=== PATIENT | male | born 1950 | race American Indian/Alaskan Native ===

== ENCOUNTER 2020-09-03 19:17 | Emergency (ER) | payer OTHER ==
--- NOTE | 2020-09-03 20:03 | Emergency Department Report ---
Blank Doc - Documentation Documentation: I received EKG from EMS and shared with on-call STEMI doctor at 7:[address] Lozada agrees that EKG findings do not represent ST elevation RI and no emergent indication needed at this time. Arrival EKG unchanged from EKG in route and continues to show a right bundle branch block. chest pain protocol initiated upon patient's arrival
--- NOTE | 2020-09-03 21:01 | Emergency Department Report ---
ED General Adult HPI - General Chief complaint: Medical Clearance Stated complaint: I am fine, there is nothing wrong with me Time Seen by Provider: 09/03/20 20:07 Source: patient, family, EMS ( EMS documentation not available at time of chart dictation ), RN notes reviewed Mode of arrival: Ambulatory Limitations: No Limitations - History of Present Illness Initial comments: The patient was evaluated in the emergency department for symptoms described in the history of present illness. He/she was evaluated in the context of the global COVID-19 pandemic, which necessitated consideration that the patient might be at risk for infection with the virus that causes COVID-19. Institutional protocols and algorithms that pertain to the evaluation of pat ients at risk for COVID-19 are in a state of rapid change based on information released by regulatory bodies including the CDC and federal and state organizations. These policies and algorithms were followed during the patient's care in the emergency department. Please note that these policies, procedures and recommendations changed on a rapid basis. During the history and physical examination, I had a complete personal protective equipment. The patient is a 70-year-old gentleman. He is brought to the hospital by emergency medical services. The patient himself says he has no complaints. He states "I feel fine, I just want to go home." The patient denies all physical pain. Contacted the patient's son with the patient's permission. Patient's son states that at around 5:00 this afternoon, patient was seen slumping over, while standing, and was "staring off into space." He also endorsed that the patient "did not seem to be himself", and was "sweating." Thus, emergency medical s ervices were activated. The patient recalls the event. The patient states that he was awake, and leaning forward, and he does not recall having physical pain. The patient states he typically follows at the [facility]. The patient states he feels like he is back to his baseline, and that he has no complaints right now, or today. -: Sudden Consistency: now resolved Improves with: none Worsens with: none Associated Symptoms: denies other symptoms ED Review of Systems ROS: Stated complaint: CHEST PAIN Other details as noted in HPI Comment: All other systems reviewed and negative ED Past Medical Hx - Past Medical History Previous Medical History?: Yes Hx Hypertension: Yes Hx Diabetes: Yes - Surgical History Past Surgical History?: No ED Physical Exam - General Limitations: No Limitations General appearance: alert, in no apparent distress - Head Head exam: Present: atraumatic, normocephalic - Eye Eye exam: Present: normal appearance, PERRL, EOMI, other (Visual acuity intact to finger counting, color perception, reading at a close distance). Absent: nystagmus - ENT ENT exam: Present: normal exam, normal orophraynx, mucous membranes moist, normal external ear exam - Neck Neck exam: Present: normal inspection, full ROM. Absent: tenderness, meningismus - Respiratory Respiratory exam: Present: normal lung sounds bilaterally. Absent: respiratory distress, wheezes, rales, rhonchi, stridor, decreased breath sounds - Cardiovascular Cardiovascular Exam: Present: regular rate, normal rhythm, normal heart sounds. Absent: bradycardia, tachycardia, irregular rhythm, systolic murmur, diastolic murmur, rubs, gallop - GI/Abdominal GI/Abdominal exam: Present: soft, normal bowel sounds. Absent: distended, tenderness, guarding, rebound, rigid, pulsatile mass - Rectal Rectal exam: Present: deferred - Extremities Exam Extremities exam: Present: normal inspection, full ROM, other (2+ pulses noted in the bilateral upper and lower extremities. There is no palpable cord. negative Homans sign. Muscular compartments are soft. The pelvis is stable.). Absent: pedal edema, calf tenderness - Back Exam Back exam: Present: normal inspection, full ROM. Absent: tenderness, CVA tenderness (R), CVA tenderness (L), paraspinal tenderness, vertebral tenderness - Neurological Exam Neurological exam: Present: alert (Able to add 4+4, subtract 100-7.), oriented X3, normal gait, other (There is no facial droop. The tongue is midline. Extraocular movements are intact bilaterally. There is 5 out of 5 strength in bilateral upper and lower extremities. Sensation is intact to light touch bilateral upper and lower extremities. There is no past-pointing. There is no pronator drift.). Absent: motor sensory deficit - Psychiatric Psychiatric exam: Present: normal affect, normal mood - Skin Skin exam: Present: warm, dry, intact, normal color. Absent: rash ED Course Vital Signs 09/03/20 09/03/20 09/03/20 20:27 21:00 21:04 Temperature 98.5 F 98.5 F Pulse Rate 85 85 84 Respiratory 14 14 15 Rate Blood Pressure 113/63 Blood Pressure 113/63 126/66 [Right] O2 Sat by Pulse 97 97 98 Oximetry 09/03/20 21:12 Temperature Pulse Rate Respiratory 15 Rate Blood Pressure Blood Pressure [Right] O2 Sat by Pulse 97 Oximetry ED Medical Decision Making - Lab Data Vital Signs 09/03/20 09/03/20 09/03/20 20:27 21:00 21:04 Temperature 98.5 F 98.5 F Pulse Rate 85 85 84 Respiratory 14 14 15 Rate Blood Pressure 113/63 Blood Pressure 113/63 126/66 [Right] O2 Sat by Pulse 97 97 98 Oximetry 09/03/20 21:12 Temperature Pulse Rate Respiratory 15 Rate Blood Pressure Blood Pressure [Right] O2 Sat by Pulse 97 Oximetry - EKG Data -: EKG Interpreted by Nd EKG shows normal: sinus rhythm - EKG Data When compared to previous EKG there are: previous EKG unavailable 09/03/20 21:34 The EKG today is unchanged from prehospital EKG. This shows a sinus rhythm, 76 bpm. There is a left axis deviation, with a left anterior fascicular block. There is a right bundle branch block noted. There is left ventricular hypertrophy. The patient denies chest pain. This EKG is not a STEMI. The EKG appears to be unchanged from prehospital EKG. - Medical Decision Making Differential diagnosis, including but not limited to: Orthostasis, vagal event, structural cardiac disease, electrolyte derangement, thyroid derangement, pneumonia, urinary tract infection, TIA Assessment and plan: 70-year-old gentleman, who is clinically sober, with a GCS of 15, alert and oriented, exhibits decision-making capacity, and is free from distracting injury. The patient is also able to carry on a lucid and rational thought process. Emergency medical services were contacted by family because the patient had a change temporarily in his baseline mental status. However, this is resolved. We strongly recommended appropriate laboratory studies, x-ray of the chest, urinalysis, noncontrast CT scan of the brain, and admission/observation to this emergency room/hospital for at least overnight observation. Risks of leaving, including , disability, paralysis, permanent loss of quality of life are discussed with the patient. Patient articulates understanding in his own words, he is currently alert and oriented, free from distracting injury, clinically sober, and exhibits decision-making capacity. He is also able to articulate these risks in his own words. This entire conversation is witnessed by nurse LOVE DELATORRE Unfortunately, the patient elected to leave AGAINST MEDICAL ADVICE/recommendations. I counseled the patient that he should return to the emergency room right away if and when he changes his mind, that the emergency room is open 24 hours a day, 7 days a week and it never closes. Patient has articulated understanding in his own words. Critical care attestation.: If time is entered above; I have spent that time in minutes in the direct care of this critically ill patient, excluding procedure time. ED Disposition Clinical Impression: General medical exam, Abnormal EKG Disposition: [id number] LEFT AGAINST MED ADVICE Is pt being admited?: No Does the pt Need Aspirin: No Condition: Undetermined Instructions: Transient Ischemic Attack, Syncope Additional Instructions: As we discussed, you have left the hospital/emergency room AGAINST MEDICAL ADVICE. By leaving, you risked , disability, paralysis, permanent loss of quality of life. The ER is open 24 hours a day, 7 days a week. It never closes. Please return to the emergency room right away if and when you change your mind. If you decide not to return to the emergency room, please follow-up with the listed physician referrals as soon as possible. Recommend the patient not drive or operate motor vehicles until cleared to do so by her primary care doctor or [employer]. Referrals: MANAV JOHNSON MD [Staff Physician] - [facility] TERRELL PALAFOX MD [Staff Physician] - [facility]
[2020-09-03 21:18] VITALS: BP 126/66
== END 2020-09-03 21:35 | disposition left against medical advice (07) ==
LOC: ED 19:17
DX: R07.89 Other chest pain (principal); R94.31 Abnormal electrocardiogram [ECG] [EKG]; I10 Essential (primary) hypertension; E11.9 Type 2 diabetes mellitus without complications; Z79.899 Other long term (current) drug therapy; Z00.00 Encounter for general adult medical examination without abnormal findings
CPT/HCPCS: 93005; 99283